=== PATIENT | female | born 1965 | race Caucasian/White ===

== ENCOUNTER 2024-03-30 05:39 | Emergency (ER) | payer OTHER ==
[~2024-03-30] VITALS: Ht 157.5 cm; Wt 52.2 kg
[2024-03-30] MEDS ORDERED: Fluorescein Sod 1MG Opth Strips RIGHTEYE ONE (06:35)
[2024-03-30] MEDS ORDERED: Tetracaine HCl/Pf 0.5% Opth Soln 4 ml RIGHTEYE ONE (06:35)
[2024-03-30] MEDS ORDERED: MOXIOPS RIGHTEYE (07:03)
[2024-03-30] MEDS ORDERED: KETOROLAC TROMET5 ML TOP (07:03)
== END 2024-03-30 07:28 | disposition home or self-care (01) ==
LOC: ER 05:39
DX: S05.01XA Injury of conjunctiva and corneal abrasion without foreign body, right eye, initial encounter (principal); S00.251A Superficial foreign body of right eyelid and periocular area, initial encounter; W44.E0XA Non-magnetic metal object unspecified, entering into or through a natural orifice, initial encounter
CPT/HCPCS: 99283; A9270